=== PATIENT | female | born 2000 | race African-American/Black ===

== ENCOUNTER 2019-11-05 19:36 | Emergency (ER) | payer MEDICAID ==
[~2019-11-05] VITALS: Ht 167.6 cm; Wt 61.0 kg
[2019-11-05 19:42] VITALS: BP 129/75
[2019-11-05] MEDS ORDERED: IBUPROFEN 600MG TABLET PO STA (20:30)
[2019-11-05 20:44] LABS: CLARITY URINE CLEAR (CLEAR); COLOR URINE YELLOW (YELLOW); KETONES URINE NEGATIVE (NEGATIVE); LEUKOCYTE ESTERASE URINE NEGATIVE (NEGATIVE); NITRITE URINE NEGATIVE (NEGATIVE); OCCULT BLOOD URINE NEGATIVE (NEGATIVE); PROTEIN URINE NEGATIVE (NEGATIVE); SPECIFIC GRAVITY URINE 1.014 (1.005-1.030); UROBILINOGEN URINE 0.2 E.U./dL (0.2-1.0)
== END 2019-11-05 21:13 | disposition home or self-care (01) ==
LOC: ER 19:36
DX: M54.5 Low back pain (principal)
CPT/HCPCS: 81003; 81025; 99283